=== PATIENT | male | born 1995 | race Caucasian/White ===

== ENCOUNTER 2017-07-08 18:01 | Emergency (ER) | payer BC ==
[2017-07-08 18:25] VITALS: BP 135/81
[2017-07-08] MEDS ORDERED: Acetaminophen TAB* 325 MG PO ONE (18:29)
--- NOTE | 2017-07-08 19:40 | UC ---
Throat Pain/Nasal Randy HPI - HPI Summary HPI Summary: TWO DAYS OF SORE THROAT, CHILLS, ABDOMINAL CRAMPING WITH DIARRHEA. FEVER. NO RASHES. MILD INTERMITTENT HEADACHE. NO NECK STIFFNESS. NO NAUSEA OR VOMITING. - History of Current Complaint Hx Obtained From: Patient Onset/Duration: Gradual Onset, Lasting Days Severity: Moderate Cough: None Associated Signs & Symptoms: Positive: Hoarseness, Fever - Epiglottits Risk Factors Epiglottis Risk Factors: Negative <Vishal Ni - Last Filed: 07/08/17 19:34> <Zara Wang - Last Filed: 07/08/17 19:50> - History of Current Complaint Chief Complaint: UCGeneralIllness Stated Complaint: THROAT PAIN Time Seen by Provider: 07/08/17 19:09 - Allergies/Home Medications Allergies/Adverse Reactions: Allergies Allergy/AdvReac Type Severity Reaction Status Date / Time No Known Allergies Allergy Verified 07/08/17 18:18 Home Medications: Home Medications Dextromethorphan-Phenylephrine [Daytime Cold & Flu Relief 10-5-325 mg] 1 cap PO ONCE 07/08/17 [History Confirmed 07/08/17] PMH/Surg Hx/FS Hx/Imm Hx Previously Healthy: Yes - Surgical History Surgical History: Yes Surgery Procedure, Year, and Place: Rt SHOULDER -2013 LABRAL TEAR AND 01/07/17 AC JOINT REPAIR - Family History Known Family History: Negative: Respiratory Disease - Social History Occupation: Student Lives: Dormitory/Roommates Alcohol Use: Weekly Substance Use Type: None Smoking Status (MU): Never Smoked Tobacco - Immunization History Most Recent Influenza Vaccination: no <Vishal Ni - Last Filed: 07/08/17 19:34> Review of Systems Constitutional: Fever, Chills Skin: Negative Eyes: Negative ENT: Sore Throat Respiratory: Cough Cardiovascular: Negative Gastrointestinal: Abdominal Pain - CRAMPING, Diarrhea Genitourinary: Negative Motor: Negative Neurovascular: Negative Musculoskeletal: Negative Neurological: Negative Psychological: Negative Is Patient Immunocompromised?: No All Other Systems Reviewed And Are Negative: Yes <Vishal Ni - Last Filed: 07/08/17 19:34> Physical Exam Triage Information Reviewed: Yes Appearance: Well-Appearing, No Pain Distress, Well-Nourished Vital Signs: Initial Vital Signs Temp 102 F 07/08/17 18:19 Pulse 106 07/08/17 18:19 Resp 18 07/08/17 18:19 BP 135/81 07/08/17 18:19 Pulse Ox 99 07/08/17 18:19 Vital Signs Reviewed: Yes Eye Exam: Normal ENT: Positive: Normal ENT inspection, Hearing grossly normal, Pharynx normal, TMs normal Dental Exam: Normal Neck exam: Normal Neck: Positive: Supple, Nontender, No Lymphadenopathy Respiratory Exam: Normal Respiratory: Positive: Chest non-tender, Lungs clear, Normal breath sounds, No respiratory distress, No accessory muscle use Cardiovascular Exam: Normal Cardiovascular: Positive: RRR, No Murmur, Pulses Normal, Brisk Capillary Refill Abdominal Exam: Normal Abdomen Description: Positive: Nontender, No Organomegaly, Soft Musculoskeletal Exam: Normal Musculoskeletal: Positive: Strength Intact, ROM Intact Neurological Exam: Normal Psychological Exam: Normal Skin Exam: Normal <Vishal Ni - Last Filed: 07/08/17 19:34> Vital Signs: Initial Vital Signs Temp 102 F 07/08/17 18:19 Pulse 106 07/08/17 18:19 Resp 18 07/08/17 18:19 BP 135/81 07/08/17 18:19 Pulse Ox 99 07/08/17 18:19 <Zara Wang - Last Filed: 07/08/17 19:50> Throat Pain/Nasal Course/Dx - Differential Dx/Diagnosis Differential Diagnosis/HQI/PQRI: Pharyngitis, Tonsillitis, URI Provider Diagnoses: GASTROENTERITIS; VIRAL SYNDROME <Vishal Ni - Last Filed: 07/08/17 19:34> Discharge <Vishal Ni - Last Filed: 07/08/17 19:34> <Zara Wang - Last Filed: 07/08/17 19:50> - Discharge Plan Condition: Stable Disposition: HOME Patient Education Materials: Gastroenteritis (ED), Viral Syndrome (ED) Forms: *School Release Referrals: [facility] @ [Outside] No Primary Care Phys,NOPCP [Primary Care Provider] - Attestation Statement User Type: Provider - I was available for consult. This patient was seen by the LILLIAN. The patient was not presented to, seen by, or examined by me. -Chris <Zara Wang - Last Filed: 07/08/17 19:50>
== END 2017-07-08 19:35 | disposition home or self-care (01) ==
LOC: UCEAST 18:01
DX: K52.9 Noninfective gastroenteritis and colitis, unspecified (principal); B34.9 Viral infection, unspecified
CPT/HCPCS: 87502; 87651; 99211; A9270-GY; G0463

== ENCOUNTER 2017-07-10 18:50 | Emergency (ER) | payer BC ==
[2017-07-10] MEDS ORDERED: NS 0.9% 1000 ML* 2,000 ML IV ONE (19:38)
[2017-07-10] MEDS ORDERED: Ondansetron INJ* 2 MG/ML VIAL IV ONE (19:38)
[2017-07-10 20:06] LABS: Mean Platelet Volume 8 um3 (7.4-10.4); Red Cell Distribution Width 13 % (10.5-15)
[2017-07-10 20:08] LABS: Hematocrit 45 % (42-52); Hemoglobin 15.7 g/dl (14.0-18.0); Mean Corpuscular HGB Conc 35 g/dl (31-36); Mean Corpuscular Hemoglobin 30 pg (27-31); Mean Corpuscular Volume 85 fL (80-94); Red Blood Count 5.31 10^6/ul (4.0-5.4); White Blood Count 5.3 10^3/ul (3.5-10.8)
[2017-07-10 20:09] LABS: Comments Flag Yes
[2017-07-10 20:21] LABS: ALT 8 U/L (7-52); AST 16 U/L (13-39); Albumin 4.2 g/dL (3.2-5.2); Alkaline Phosphatase 46 U/L (34-104); Anion Gap 10 mmol/L (2-11); BUN/Creatinine Ratio 12.5 (8-20); Blood Urea Nitrogen 14 mg/dL (6-24); C Reactive Protein 100.44 mg/L (< 5.00); CO2 Carbon Dioxide 26 mmol/L (22-32); Calcium 9.5 mg/dL (8.6-10.3); Chloride 100 mmol/L (101-111); EGFR African American 108.6 (>60); EGFR Non-African American 84.5 (>60); Globulin 3.1 g/dL (2-4); Glucose 80 mg/dL (70-100); Lipase 15 U/L (11.0-82.0); Magnesium 2.2 mg/dL (1.9-2.7); Potassium 3.7 mmol/L (3.5-5.0); Sodium 136 mmol/L (133-145); Total Protein 7.3 g/dL (6.4-8.9)
[2017-07-10 20:39] LABS: Manual Entry Verification MER0007; Mono Internal Control QC Line Present
[2017-07-10 20:53] LABS: Acetaminophen < 15 mcg/mL
[2017-07-10 21:20] LABS: Urine Bacteria Absent (Absent); Urine Bilirubin Negative (Negative); Urine Glucose Negative (Negative); Urine Nitrite Negative (Negative)
[2017-07-10] MEDS ORDERED: Ondansetron ODT TAB* 4 MG PO ONE (21:26)
--- NOTE | 2017-07-10 21:33 | ED ---
Aretha Matos Gabriel, scribed for Say Mendoza MD on 07/10/17 at 1933 . HPI Febrile Illness - HPI Summary HPI Summary: This patient is a 21 year old M presenting to [facility] accompanied by girlfriend with a chief complaint of fever since 3 days ago. Patient reports BUNCH, diarrhea, vomiting, fatigue, vision changes, sore throat, lightheaded on standing, chills , general malaise. Pt also reports he is waking up in the middle of the night having what he describes as a panic attack and is having hallucinations. Patient denies neck pain, ear pain, cough, chest congestion, ABD pain. He was seen at 3 days ago where he was given a flu and strep test, both were negative. He is taking Tylenol with no relief. He is unable to keep down PO intake. - History of Current Complaint Chief Complaint: EDNauseaVomitDiarrh Time Seen by Provider: 07/10/17 19:25 Hx Obtained From: Patient Timing: Constant, Lasting Days - 3 Pain Intensity: 0 Associated Signs and Symptoms: Negative - neck pain, ear pain, cough, chest congestion, and ABD pain., Other: - BUNCH, diarrhea, vomiting, fatigue, vision changes, sore throat, lightheaded on standing, chills, general malaise. - Allergy/Home Medications Allergies/Adverse Reactions: Allergies Allergy/AdvReac Type Severity Reaction Status Date / Time No Known Allergies Allergy Verified 07/08/17 18:18 PMH/Surg Hx/FS Hx/Imm Hx Previously Healthy: No Endocrine/Hematology History: Denies: Hx Diabetes Cardiovascular History: Denies: Hx Hypertension, Hx Pacemaker/ICD History: Denies: Hx Renal Disease Sensory History: Denies: Hx Hearing Aid Psychiatric History: Denies: Hx Panic Disorder - Surgical History Surgery Procedure, Year, and Place: Rt SHOULDER -2013 LABRAL TEAR AND 01/07/17 AC JOINT REPAIR Infectious Disease History: No Infectious Disease History: Denies: Traveled Outside the [place] in Last 30 Days - Family History Known Family History: Negative: Respiratory Disease - Social History Alcohol Use: Weekly Substance Use Type: Reports: None Smoking Status (MU): Never Smoked Tobacco Review of Systems Constitutional: Other - general malaise Positive: Fever, Chills, Fatigue Positive: Other - vision changes Positive: Sore Throat. Negative: Ear Ache Respiratory: Negative - chest congestion Negative: Cough Positive: Vomiting, Diarrhea. Negative: Abdominal Pain Musculoskeletal: Negative - neck pain Neurological: Other - lightheaded Positive: Headache All Other Systems Reviewed And Are Negative: Yes Physical Exam - Summary Physical Exam Summary: General: well-appearing, no pain distress Skin: warm, color reflects adequate perfusion, dry Head: normal Eyes: EOMI, ROLANDO ENT: normal Neck: supple, nontender Respiratory: CTA, breath sounds present Cardiovascular: RRR Abdomen: soft, nontender Bowel: present Musculoskeletal: normal, strength/ROM intact Neurological: normal, sensory/motor intact, A&O x3 Psychological: affect/mood appropriate Triage Information Reviewed: Yes Vital Signs On Initial Exam: Initial Vitals Temp Pulse Resp BP Pulse Ox 98.6 F 82 18 133/80 98 07/10/17 18:56 07/10/17 18:56 07/10/17 18:56 07/10/17 18:56 07/10/17 18:56 Vital Signs Reviewed: Yes - Lindy Coma Scale Coma Scale Total: 15 Diagnostics - Vital Signs Vital Signs Temp Pulse Resp BP Pulse Ox 07/10/17 18:56 98.6 F 82 18 133/80 98 - Laboratory Lab Results: Lab Results 07/10/17 07/10/17 07/10/17 Range/Units 19:52 19:52 19:52 WBC 5.3 (3.5-10.8) 10^3/ul RBC 5.31 (4.0-5.4) 10^6/ul Hgb 15.7 (14.0-18.0) g/dl Hct 45 (42-52) % MCV 85 (80-94) fL MCH 30 (27-31) pg MCHC 35 (31-36) g/dl RDW 13 (10.5-15) % Plt Count 150 (150-450) 10^3/ul MPV 8 (7.4-10.4) um3 Neut % (Auto) 62.6 (38-83) % Lymph % (Auto) 15.4 L (25-47) % [place] % (Auto) 21.6 H (1-9) % Eos % (Auto) 0 (0-6) % Baso % (Auto) 0.4 (0-2) % Absolute Neuts (auto) 3.3 (1.5-7.7) 10^3/ul Absolute Lymphs (auto) 0.8 L (1.0-4.8) 10^3/ul Absolute Monos (auto) 1.2 H (0-0.8) 10^3/ul Absolute Eos (auto) 0 (0-0.6) 10^3/ul Absolute Basos (auto) 0 (0-0.2) 10^3/ul Absolute Nucleated RBC 0.01 10^3/ul Nucleated RBC % 0.1 INR (Anticoag Therapy) 1.15 H (0.77-1.02) APTT 36.1 (26.0-36.3) seconds Sodium 136 (133-145) mmol/L Potassium 3.7 (3.5-5.0) mmol/L Chloride 100 L (101-111) mmol/L Carbon Dioxide 26 (22-32) mmol/L Anion Gap 10 (2-11) mmol/L BUN 14 (6-24) mg/dL Creatinine 1.12 (0.67-1.17) mg/dL Est GFR ( Amer) 108.6 (>60) Est GFR (Non-Af Amer) 84.5 (>60) BUN/Creatinine Ratio 12.5 (8-20) Glucose 80 (70-100) mg/dL Lactic Acid (0.5-2.0) mmol/L Calcium 9.5 (8.6-10.3) mg/dL Magnesium 2.2 (1.9-2.7) mg/dL Total Bilirubin 0.50 (0.2-1.0) mg/dL AST 16 (13-39) U/L ALT 8 (7-52) U/L Alkaline Phosphatase 46 (34-104) U/L C-Reactive Protein 100.44 H (< 5.00) mg/L Total Protein 7.3 (6.4-8.9) g/dL Albumin 4.2 (3.2-5.2) g/dL Globulin 3.1 (2-4) g/dL Albumin/Globulin Ratio 1.4 (1-3) Lipase 15 (11.0-82.0) U/L Urine Color Urine Appearance Urine pH (5-9) Ur Specific [place] (1.010-1.030) Urine Protein (Negative) Urine Ketones (Negative) Urine Blood (Negative) Urine Nitrate (Negative) Urine Bilirubin (Negative) Urine Urobilinogen (Negative) Ur Leukocyte Esterase (Negative) Urine WBC (Auto) (Absent) Urine RBC (Auto) (Absent) Ur Squamous Epith Cells (Absent) Urine Bacteria (Absent) Urine Glucose (Negative) Urine Ascorbic Acid (Negative) Acetaminophen < 15 mcg/mL Monoscreen Negative (Negative) Influenza A (Rapid) (Negative) Influenza B (Rapid) (Negative) Group A Strep Rapid (Negative) 07/10/17 07/10/17 07/10/17 Range/Units 19:52 20:06 20:11 WBC (3.5-10.8) 10^3/ul RBC (4.0-5.4) 10^6/ul Hgb (14.0-18.0) g/dl Hct (42-52) % MCV (80-94) fL MCH (27-31) pg MCHC (31-36) g/dl RDW (10.5-15) % Plt Count (150-450) 10^3/ul MPV (7.4-10.4) um3 Neut % (Auto) (38-83) % Lymph % (Auto) (25-47) % [place] % (Auto) (1-9) % Eos % (Auto) (0-6) % Baso % (Auto) (0-2) % Absolute Neuts (auto) (1.5-7.7) 10^3/ul Absolute Lymphs (auto) (1.0-4.8) 10^3/ul Absolute Monos (auto) (0-0.8) 10^3/ul Absolute Eos (auto) (0-0.6) 10^3/ul Absolute Basos (auto) (0-0.2) 10^3/ul Absolute Nucleated RBC 10^3/ul Nucleated RBC % INR (Anticoag Therapy) (0.77-1.02) APTT (26.0-36.3) seconds Sodium (133-145) mmol/L Potassium (3.5-5.0) mmol/L Chloride (101-111) mmol/L Carbon Dioxide (22-32) mmol/L Anion Gap (2-11) mmol/L BUN (6-24) mg/dL Creatinine (0.67-1.17) mg/dL Est GFR ( Amer) (>60) Est GFR (Non-Af Amer) (>60) BUN/Creatinine Ratio (8-20) Glucose (70-100) mg/dL Lactic Acid 0.8 (0.5-2.0) mmol/L Calcium (8.6-10.3) mg/dL Magnesium (1.9-2.7) mg/dL Total Bilirubin (0.2-1.0) mg/dL AST (13-39) U/L ALT (7-52) U/L Alkaline Phosphatase (34-104) U/L C-Reactive Protein (< 5.00) mg/L Total Protein (6.4-8.9) g/dL Albumin (3.2-5.2) g/dL Globulin (2-4) g/dL Albumin/Globulin Ratio (1-3) Lipase (11.0-82.0) U/L Urine Color Urine Appearance Urine pH (5-9) Ur Specific [place] (1.010-1.030) Urine Protein (Negative) Urine Ketones (Negative) Urine Blood (Negative) Urine Nitrate (Negative) Urine Bilirubin (Negative) Urine Urobilinogen (Negative) Ur Leukocyte Esterase (Negative) Urine WBC (Auto) (Absent) Urine RBC (Auto) (Absent) Ur Squamous Epith Cells (Absent) Urine Bacteria (Absent) Urine Glucose (Negative) Urine Ascorbic Acid (Negative) Acetaminophen mcg/mL Monoscreen (Negative) Influenza A (Rapid) Negative (Negative) Influenza B (Rapid) Negative (Negative) Group A Strep Rapid Negative (Negative) 07/10/17 Range/Units 20:52 WBC (3.5-10.8) 10^3/ul RBC (4.0-5.4) 10^6/ul Hgb (14.0-18.0) g/dl Hct (42-52) % MCV (80-94) fL MCH (27-31) pg MCHC (31-36) g/dl RDW (10.5-15) % Plt Count (150-450) 10^3/ul MPV (7.4-10.4) um3 Neut % (Auto) (38-83) % Lymph % (Auto) (25-47) % [place] % (Auto) (1-9) % Eos % (Auto) (0-6) % Baso % (Auto) (0-2) % Absolute Neuts (auto) (1.5-7.7) 10^3/ul Absolute Lymphs (auto) (1.0-4.8) 10^3/ul Absolute Monos (auto) (0-0.8) 10^3/ul Absolute Eos (auto) (0-0.6) 10^3/ul Absolute Basos (auto) (0-0.2) 10^3/ul Absolute Nucleated RBC 10^3/ul Nucleated RBC % INR (Anticoag Therapy) (0.77-1.02) APTT (26.0-36.3) seconds Sodium (133-145) mmol/L Potassium (3.5-5.0) mmol/L Chloride (101-111) mmol/L Carbon Dioxide (22-32) mmol/L Anion Gap (2-11) mmol/L BUN (6-24) mg/dL Creatinine (0.67-1.17) mg/dL Est GFR ( Amer) (>60) Est GFR (Non-Af Amer) (>60) BUN/Creatinine Ratio (8-20) Glucose (70-100) mg/dL Lactic Acid (0.5-2.0) mmol/L Calcium (8.6-10.3) mg/dL Magnesium (1.9-2.7) mg/dL Total Bilirubin (0.2-1.0) mg/dL AST (13-39) U/L ALT (7-52) U/L Alkaline Phosphatase (34-104) U/L C-Reactive Protein (< 5.00) mg/L Total Protein (6.4-8.9) g/dL Albumin (3.2-5.2) g/dL Globulin (2-4) g/dL Albumin/Globulin Ratio (1-3) Lipase (11.0-82.0) U/L Urine Color Yellow Urine Appearance Clear Urine pH 5.0 (5-9) Ur Specific [place] 1.028 (1.010-1.030) Urine Protein 1+(30 mg/dl) H (Negative) Urine Ketones 1+ H (Negative) Urine Blood Negative (Negative) Urine Nitrate Negative (Negative) Urine Bilirubin Negative (Negative) Urine Urobilinogen Negative (Negative) Ur Leukocyte Esterase Negative (Negative) Urine WBC (Auto) 1+(6-10/hpf) H (Absent) Urine RBC (Auto) Trace(0-2/hpf) (Absent) Ur Squamous Epith Cells Present H (Absent) Urine Bacteria Absent (Absent) Urine Glucose Negative (Negative) Urine Ascorbic Acid * H (Negative) Acetaminophen mcg/mL Monoscreen (Negative) Influenza A (Rapid) (Negative) Influenza B (Rapid) (Negative) Group A Strep Rapid (Negative) Result Diagrams: 07/10/17 19:52 07/10/17 19:52 Lab Statement: Any lab studies that have been ordered have been reviewed, and results considered in the medical decision making process. Course/Dx - Course Course Of Treatment: FEVER GONE IN ED. HAD IBUPROFEN JPTA. BUNCH IS FRONTAL AND PATIENT DENIES NECK PAIN; NECK IS SUPPLE. NOT CLINICALLY MENINGITIS AT THIS TIME. DISCUSSED RESULTS WITH PATIENT AND FRIEND. PROBABLE VIRAL INFECTION; MONONUCLEOSIS IS A POSSIBILITY. DISCUSSED TAKING IBUPROFEN/ACETAMINOPHEN DIRECTED NEEDED. RX ZOFRAN. F/U [facility]; RETURN TO ED IF WORSE. - Diagnoses Provider Diagnoses: Fever, Dehydration, Vomiting and diarrhea Discharge - Discharge Plan Condition: Stable Disposition: HOME Patient Education Materials: Dehydration (ED), Acute Nausea and Vomiting (ED), Fever in Adults (ED) Referrals: [facility] [Primary Care Provider] - Additional Instructions: FOLLOW UP WITH YOUR DOCTOR. TAKE IBUPROFEN AND ACETAMINOPHEN DIRECTED NEEDED. RETURN TO THE EMERGENCY DEPARTMENT FOR ANY WORSENING OF YOUR CONDITION OR QUESTIONS OR CONCERNS. The documentation as recorded by the Aretha mishra Gabriel accurately reflects the service I personally performed and the decisions made by me, Say Mendoza MD.
[2017-07-10 22:22] VITALS: BP 130/77
== END 2017-07-10 22:23 | disposition home or self-care (01) ==
LOC: ED 18:50
DX: R50.9 Fever, unspecified (principal); E86.0 Dehydration; R11.10 Vomiting, unspecified; R19.7 Diarrhea, unspecified
CPT/HCPCS: 36415; 80053; 80329; 81003; 81015; 83605; 83690; 83735; 85025; 85610; 85730; 86140; 86308; 87502; 87651; 96360; 96374; 99282; A9270-GY; G0480; J2405

== ENCOUNTER 2018-10-26 14:11 | Emergency (ER) | payer BC, OTHER ==
[2018-10-26 14:46] LABS: Urine Appearance Clear; Urine Bilirubin Negative (Negative); Urine Blood Negative (Negative); Urine Color Yellow; Urine Glucose Negative (Negative); Urine Ketones Negative (Negative); Urine Nitrite Negative (Negative); Urine Protein Negative (Negative); Urine Specific Gravity 1.027 (1.010-1.030); Urine Urobilinogen Negative (Negative)
[2018-10-26 15:08] LABS: ABS Basophils 0 10^3/ul (0-0.2); ABS Eosinophils 0.1 10^3/ul (0-0.6); ABS Lymphocytes 1.2 10^3/ul (1.0-4.8); ABS Monocytes 0.6 10^3/ul (0-0.8); ABS Nucleated RBC 0 10^3/ul; Eosinophil % 1.8 %; Hematocrit 46 % (36-46); Hemoglobin 15.9 g/dL (14.0-18.0); Lymphocyte % 20.1 %; Mean Corpuscular HGB Conc 35 g/dL (31-36); Mean Corpuscular Hemoglobin 30 pg (27-31); Mean Corpuscular Volume 86 fL (80-94); Mean Platelet Volume 7.4 fL (7.4-10.4); Nucleated Red Blood Cells % 0; Platelet Count 289 10^3/uL (150-450); Red Blood Count 5.33 10^6 /uL (4.18-5.48); Red Cell Distribution Width 13 % (10.5-15)
[2018-10-26 15:29] LABS: Albumin 4.5 g/dL (3.2-5.2); Albumin/Globulin Ratio 1.6 (1-3); BUN/Creatinine Ratio 18.8 (8-20); C Reactive Protein 8.42 mg/L (<8.01); Calcium 9.7 mg/dL (8.6-10.3); EGFR Non-African American 94.2 (>60); Globulin 2.9 g/dL (2-4); Potassium 4.4 mmol/L (3.5-5.0); Total Bilirubin 0.7 mg/dL (0.2-1.0); Total Protein 7.4 g/dL (6.4-8.9)
[2018-10-26 15:54] VITALS: BP 137/80
--- NOTE | 2018-10-26 16:39 | ED ---
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 On arrival, patient states he has had RLQ pain 2 days. He endorses this pain is mild, rating this 2/10, not worse with palpation. He denies any nausea, vomiting, fever, sweats, chills, urinary symptoms, back pain. Denies any headache, visual changes or disturbances, SOB or CP. He takes no medications. He states prior to this, he states he had a binge drinking episode and later awoke and in the morning with this RLQ pain. He is unsure if he pulled a muscle. He does still have his appendix and denies any other abdominal surgeries. - History of Current Complaint Chief Complaint: EDAbdPain Stated Complaint: LOWER ABD PAIN PER PT Time Seen by Provider: 10/26/18 14:12 Hx Obtained From: Patient Onset/Duration: Sudden Onset Timing: Constant Severity Initially: Moderate Severity Currently: Moderate Pain Intensity: 0 Pain Scale Used: 0-10 Numeric Location: Discrete At: RLQ Radiates: No Radiates to: RLQ Character: Sharp Aggravating Factor(s): Nothing Alleviating Factor(s): Nothing Associated Signs And Symptoms: Positive: Negative - Risk Factors Testicular Torsion: Negative - Allergies/Home Medications Allergies/Adverse Reactions: Allergies Allergy/AdvReac Type Severity Reaction Status Date / Time No Known Allergies Allergy Verified 07/08/17 18:18 Home Medications: Home Medications NK [No Home Medications Reported] 10/26/18 [History Confirmed 10/26/18] PMH/Surg Hx/FS Hx/Imm Hx Previously Healthy: Yes Endocrine/Hematology History: Denies: Hx Diabetes Cardiovascular History: Denies: Hx Hypertension, Hx Pacemaker/ICD History: Denies: Hx Renal Disease Sensory History: Denies: Hx Hearing Aid Psychiatric History: Denies: Hx Panic Disorder - Surgical History Surgery Procedure, Year, and Place: Rt SHOULDER -2013 LABRAL TEAR AND 01/07/17 AC JOINT REPAIR - Immunization History Hx Pertussis Vaccination: No Immunizations Up to Date: Yes Infectious Disease History: No Infectious Disease History: Denies: Traveled Outside the [place] in Last 30 Days - Family History Known Family History: Negative: Respiratory Disease - Social History Occupation: Unemployed, Student Lives: Dormitory/Roommates Alcohol Use: Weekly Hx Substance Use: Yes Substance Use Type: Reports: Marijuana Hx Tobacco Use: No Smoking Status (MU): Never Smoked Tobacco Review of Systems Constitutional: Negative Negative: Fever, Chills, Fatigue, Skin Diaphoresis Negative: Palpitations, Chest Pain Negative: Shortness Of Breath, Cough Positive: Abdominal Pain. Negative: Vomiting, Diarrhea, Nausea Genitourinary: Negative Positive: no symptoms reported, see HPI. Negative: burning, dysuria Negative: Arthralgia, Myalgia Skin: Negative All Other Systems Reviewed And Are Negative: Yes Physical Exam Triage Information Reviewed: Yes Vital Signs On Initial Exam: Initial Vitals Temp Pulse Resp BP Pulse Ox 97.2 F 58 18 134/88 99 10/26/18 14:12 10/26/18 14:12 10/26/18 14:12 10/26/18 14:12 10/26/18 14:12 Vital Signs Reviewed: Yes Appearance: Positive: Well-Appearing, Well-Nourished Skin: Positive: Warm, Skin Color Reflects Adequate Perfusion Head/Face: Positive: Normal Head/Face Inspection Eyes: Positive: EOMI, ROLANDO, Conjunctiva Clear Neck: Positive: Supple, No Lymphadenopathy Respiratory/Lung Sounds: Positive: Clear to Auscultation, Breath Sounds Present Cardiovascular: Positive: RRR, Pulses are Symmetrical in both Upper and Lower Extremities. Negative: Leg Edema Left, Leg Edema Right Abdomen Description: Positive: Nontender, Soft. Negative: CVA Tenderness (R), CVA Tenderness (L), Distended, Guarding Musculoskeletal: Positive: Normal, Strength/ROM Intact Neurological: Positive: Speech Normal Psychiatric: Positive: Normal, Affect/Mood Appropriate Diagnostics - Vital Signs Vital Signs Temp Pulse Resp BP Pulse Ox 10/26/18 15:53 98.5 F 63 18 137/80 98 10/26/18 15:05 62 137/69 98 10/26/18 15:00 65 97 10/26/18 14:21 57 154/110 99 10/26/18 14:12 97.2 F 58 18 134/88 99 - Laboratory Lab Results: Lab Results 10/26/18 10/26/18 10/26/18 Range/Units 14:23 14:52 14:52 WBC 6.0 (3.5-10.8) 10^3/uL RBC 5.33 (4.18-5.48) 10^6 /uL Hgb 15.9 (14.0-18.0) g/dL Hct 46 (36-46) % MCV 86 (80-94) fL MCH 30 (27-31) pg MCHC 35 (31-36) g/dL RDW 13 (10.5-15) % Plt Count 289 (150-450) 10^3/uL MPV 7.4 (7.4-10.4) fL Neut % (Auto) 66.9 % Lymph % (Auto) 20.1 % [place] % (Auto) 10.6 % Eos % (Auto) 1.8 % Baso % (Auto) 0.6 % Absolute Neuts (auto) 4.0 (1.5-7.7) 10^3/ul Absolute Lymphs (auto) 1.2 (1.0-4.8) 10^3/ul Absolute Monos (auto) 0.6 (0-0.8) 10^3/ul Absolute Eos (auto) 0.1 (0-0.6) 10^3/ul Absolute Basos (auto) 0 (0-0.2) 10^3/ul Absolute Nucleated RBC 0 10^3/ul Nucleated RBC % 0 Sodium 135 (135-145) mmol/L Potassium 4.4 (3.5-5.0) mmol/L Chloride 104 (101-111) mmol/L Carbon Dioxide 30 (22-32) mmol/L Anion Gap 1 L (2-11) mmol/L BUN 19 (6-24) mg/dL Creatinine 1.01 (0.67-1.17) mg/dL Est GFR ( Amer) 114.0 (>60) Est GFR (Non-Af Amer) 94.2 (>60) BUN/Creatinine Ratio 18.8 (8-20) Glucose 96 (70-100) mg/dL Lactic Acid (0.5-2.0) mmol/L Calcium 9.7 (8.6-10.3) mg/dL Magnesium (1.9-2.7) mg/dL Total Bilirubin 0.70 (0.2-1.0) mg/dL AST 20 (13-39) U/L ALT 17 (7-52) U/L Alkaline Phosphatase 59 (34-104) U/L C-Reactive Protein 8.42 H (<8.01) mg/L Total Protein 7.4 (6.4-8.9) g/dL Albumin 4.5 (3.2-5.2) g/dL Globulin 2.9 (2-4) g/dL Albumin/Globulin Ratio 1.6 (1-3) Lipase 25 (11.0-82.0) U/L Urine Color Yellow Urine Appearance Clear Urine pH 7.0 (5-9) Ur Specific [place] 1.027 (1.010-1.030) Urine Protein Negative (Negative) Urine Ketones Negative (Negative) Urine Blood Negative (Negative) Urine Nitrate Negative (Negative) Urine Bilirubin Negative (Negative) Urine Urobilinogen Negative (Negative) Ur Leukocyte Esterase Negative (Negative) Urine Glucose Negative (Negative) Urine Ascorbic Acid * A (Negative) 10/26/18 10/26/18 Range/Units 14:52 14:52 WBC (3.5-10.8) 10^3/uL RBC (4.18-5.48) 10^6 /uL Hgb (14.0-18.0) g/dL Hct (36-46) % MCV (80-94) fL MCH (27-31) pg MCHC (31-36) g/dL RDW (10.5-15) % Plt Count (150-450) 10^3/uL MPV (7.4-10.4) fL Neut % (Auto) % Lymph % (Auto) % [place] % (Auto) % Eos % (Auto) % Baso % (Auto) % Absolute Neuts (auto) (1.5-7.7) 10^3/ul Absolute Lymphs (auto) (1.0-4.8) 10^3/ul Absolute Monos (auto) (0-0.8) 10^3/ul Absolute Eos (auto) (0-0.6) 10^3/ul Absolute Basos (auto) (0-0.2) 10^3/ul Absolute Nucleated RBC 10^3/ul Nucleated RBC % Sodium (135-145) mmol/L Potassium (3.5-5.0) mmol/L Chloride (101-111) mmol/L Carbon Dioxide (22-32) mmol/L Anion Gap (2-11) mmol/L BUN (6-24) mg/dL Creatinine (0.67-1.17) mg/dL Est GFR ( Amer) (>60) Est GFR (Non-Af Amer) (>60) BUN/Creatinine Ratio (8-20) Glucose (70-100) mg/dL Lactic Acid 0.6 (0.5-2.0) mmol/L Calcium (8.6-10.3) mg/dL Magnesium 2.0 (1.9-2.7) mg/dL Total Bilirubin (0.2-1.0) mg/dL AST (13-39) U/L ALT (7-52) U/L Alkaline Phosphatase (34-104) U/L C-Reactive Protein (<8.01) mg/L Total Protein (6.4-8.9) g/dL Albumin (3.2-5.2) g/dL Globulin (2-4) g/dL Albumin/Globulin Ratio (1-3) Lipase (11.0-82.0) U/L Urine Color Urine Appearance Urine pH (5-9) Ur Specific [place] (1.010-1.030) Urine Protein (Negative) Urine Ketones (Negative) Urine Blood (Negative) Urine Nitrate (Negative) Urine Bilirubin (Negative) Urine Urobilinogen (Negative) Ur Leukocyte Esterase (Negative) Urine Glucose (Negative) Urine Ascorbic Acid (Negative) Result Diagrams: 10/26/18 14:52 10/26/18 14:52 Lab Statement: Any lab studies that have been ordered have been reviewed, and results considered in the medical decision making process. Abdominal Pain Male Course/Dx - Course Course Of Treatment: Patient is evaluated for all RLQ pain which began 2 days ago. This pain is rated 2/10 in intensity, currently 0/10 in intensity. Denies any nausea, vomiting. Denies any fevers, sweats, chills. On physical examination, patient appears well, nontoxic in appearing. Abdominal exam reveals no pain over McBurney's point, negative Rovsing sign, negative obturator , negative so as. No pain to palpation in all 4 quadrants. Jumping up and down without pain to the RLQ. Patient is afebrile and other vital signs are stable. Lungs CTA, RRR. Patient is equal strength in both bilateral upper and lower extremities. Labs obtained which show a normal white count and CRP of 8.42. At this time, patient is comfortable, afebrile with a normal white count and no RLQ pain. At this time I do not feel it is necessary to obtain a CT or an ultrasound to assess for an acute appendicitis. Patient is given strict return precautions for fevers, sweats, chills or RLQ pain. He understands these return precautions and is okay for discharge at this time. - Diagnoses Provider Diagnoses: RLQ abdominal pain Discharge - Sign-Out/Discharge Documenting (check all that apply): Patient Departure Patient Received Moderate/Deep Sedation with Procedure: No - Discharge Plan Condition: Stable Disposition: HOME Referrals: No Primary Care Phys,NOPCP [Primary Care Provider] - Additional Instructions: If he develop any fevers, sweats, chills, worsening right-sided abdominal pain, nausea, vomiting, return to the ED immediately Use some heat to the area for a possible muscle strain Ibuprofen 600mg 3 times daily for any discomfort - Billing Disposition and Condition Condition: STABLE Disposition: Home
== END 2018-10-26 15:53 | disposition home or self-care (01) ==
LOC: ED 14:11
DX: R10.31 Right lower quadrant pain (principal)
CPT/HCPCS: 36415; 80053; 81003; 83605; 83690; 83735; 85025; 86140; 99282